=== PATIENT | female | born 1995 | race Caucasian/White ===

== ENCOUNTER 2021-11-23 12:01 | Emergency (ER) | payer OTHER, SELFPAY ==
[2021-11-23 12:08] VITALS: BP 136/74; PULSE 78; RESP 16; TEMP 37.3; O2SAT 100
--- NOTE | 2021-11-23 12:27 | ED.URI ---
HPI - URI/Sore Throat General Chief Complaint: Upper Respiratory Infection Stated Complaint: Ear Pain Time Seen by Provider: 11/23/21 12:22 Source: patient and RN notes reviewed Mode of arrival: ambulatory Limitations: no limitations History of Present Illness HPI Narrative: 26-year-old male presented for complaint of bilateral ear pain for the last 2 days, sore throat yesterday. Endorses occasional nonproductive cough, sinus pressure and congestion. He denies shortness of breath, wheezing, nausea, vomiting, fevers or chills. He has not taken anything for symptoms. Endorses sick contacts. He is not opposed for COVID or vaccinated for the flu. MD elicited complaint: cough Related Data Home Medications Medication Instructions Recorded Confirmed No Home Medications 11/23/21 11/23/21 Allergies Allergy/AdvReac Type Severity Reaction Status Date / Time amoxicillin Allergy Nausea and Verified 11/23/21 12:23 Vomiting Review of Systems Review of Systems: CONSTITUTIONAL: Denies malaise, chills, sweats, fever EYES: Denies visual changes, redness, or discharge ENT: Reports rhinorrhea, congestion, sinus pain, otalgia, sore throat CARDIOVASCULAR: Denies chest pain, palpitations, edema RESPIRATORY: Reports cough, post nasal drainage. Denies dyspnea GASTROINTESTINAL: Denies abdominal pain, nausea, vomiting, diarrhea SKIN: Denies rash or itching MUSCULOSKELETAL: Denies myalgia NEUROLOGIC: Denies headache Exam Narrative: GENERAL: Ill-appearing, nontoxic HEAD: Normocephalic EYES: conjunctivae clear ENT: Mucous membranes moist. TM erythematous with dull light reflex and fluid bilaterally; no tragal tenderness. Oropharynx erythematous , tonsils enlarged 1+ without lesions or exudate, no drooling, no hoarseness, no trismus, uvula midline. No tripod positioning, muffled voice, soft palate or pharyngeal wall bulging NECK: Supple. No lymphadenopathy CHEST: Clear to auscultation, breath sounds equal. No wheezing, rhonchi, rales, or stridor. No respiratory distress, speaks in full sentences. HEART: Regular rate and rhythm. No murmur heard. SKIN: Warm, dry, no rash. NEURO: Alert and oriented x3. PSYCH: Normal mood and affect Course Course Emergency Course: Patient is aware of diagnosis, understands and agrees to treatment plan. Anticipatory guidance given. Patient agrees to follow-up as directed and is aware of reasons to seek care at the emergency department. Portions of this record may have been created with voice recognition software Level of Care: Express Care Visit Vital Signs Vital signs: Vital Signs Temperature 99.2 F 11/23/21 12:08 Pulse Rate 78 11/23/21 12:08 Respiratory Rate 16 11/23/21 12:08 Blood Pressure 136/74 11/23/21 12:08 Pulse Oximetry 100 11/23/21 12:08 Temperature 99.2 F 11/23/21 12:08 Pulse Rate 78 11/23/21 12:08 Respiratory Rate 16 11/23/21 12:08 Blood Pressure 136/74 11/23/21 12:08 Pulse Oximetry 100 11/23/21 12:08 reviewed Procedures Ear Wax Removal Right Ear: Ear Wax Removal Date: 11/23/21 Results: Re-examined: cerumen removed completely TM Examination: TM(s) erythematous Ear Canal Exam: atraumatic Patient Tolerated Procedure: well Complications: no problems Technique: ear canal curetted Additional Comments: curette used to remove cerumen blocking the TM, fluid and erythema noted after removal MDM - URI/Sore Throat MDM Narrative Medical decision making narrative: PE c/w OM left. Strep negative. PCN allergy. Advised supportive treatments along with abx. Appropriate for outpt treatment and f/u. Differential Diagnosis Differential diagnosis: Likely upper respiratory infection, otitis media, sinusitis, viral infection and pharyngitis Lab Data Attestation: I reviewed the patient's lab results. Discharge Plan Discharge Clinical Impression: Otitis media Qualifiers: Otitis media type: suppurative Chronicit
== END 2021-11-23 12:45 | disposition home or self-care (01) ==
PROVIDERS: Emergency Provider Nurse Practitioner Family
DX: H66.012 Acute suppurative otitis media with spontaneous rupture of ear drum, left ear (principal)
CPT/HCPCS: 69210; 87081; 87880; 99213; G0463